=== PATIENT | female | born 1975 | race Two or more races ===

== ENCOUNTER 2020-02-06 01:49 | Emergency (ER) | payer MEDICAID ==
[~2020-02-06] VITALS: Ht 152.4 cm; Wt 81.8 kg
[2020-02-06] MEDS ORDERED: METOCLOPRAMIDE HCL 5 MG/ML 2 ML VIAL IVP ONE (02:45)
[2020-02-06 03:17] LABS: ANION GAP 7 mmol/L (8-16); CALCIUM, TOTAL 8.9 mg/dL (8.8-10.5); CARBON DIOXIDE 30 mmol/L (22-29); CHLORIDE 97 mmol/L (98-107); CREATININE 0.87 mg/dL (0.60-1.30); GLOMERULAR FILTR. RATE CALC > 60 mL/min (>60); GLUCOSE,RANDOM 148 mg/dL (70-110); HEMATOCRIT 42.3 % (36-46); HEMOGLOBIN 15.1 g/dL (12.0-16.0); MEAN CORPUSCULAR HEMOGLOBIN 33.3 pg (26.0-34.0); MEAN CORPUSCULAR HGB CONC 35.6 G/dL (31.0-37.0); MEAN CORPUSCULAR VOLUME 94 fL (80-100); PLATELET COUNT (AUTO) 187 K/uL (150-450); POTASSIUM 3.8 mmol/L (3.5-5.1); RED BLOOD CELL COUNT(AUTO) 4.52 MIL/uL (4.00-5.20); RED CELL DISTRIBUTION WIDTH 13.3 % (11.5-14.5); SODIUM SERUM 134 mmol/L (136-145); UREA NITROGEN, BLOOD 14 mg/dL (7-18)
[2020-02-06 03:31] LABS: ALANINE AMINOTRANSFERASE 130 U/L (12-78); ALBUMIN 4.2 g/dL (3.4-5.0); ALKALINE PHOSPHATASE 75 U/L (46-116); ASPARTATE AMINOTRANSFERASE 80 U/L (15-37); BILIRUBIN,TOTAL 0.7 mg/dL (0.1-1.0); FREE T4 (FREE THYROXINE) 1.18 ng/dL (0.76-1.46); THYROID STIMULATING HORMONE 1.59 uIU/mL (0.36-3.74); TOTAL PROTEIN, SERUM 8.6 g/dL (6.4-8.2)
[2020-02-06 03:48] LABS: BAND NEUTROPHILS % (MANUAL) 4 % (0-5); LYMPHOCYTES % (MANUAL) 17 % (22-44); MONOCYTES % (MANUAL) 4 % (2-9); SEGMENTED NEUTROPHILS % 75 % (40-70)
[2020-02-06] MEDS ORDERED: IBUPROFEN 400 MG TABLET PO ONE (04:00)
[2020-02-06 04:06] VITALS: BP 138/81
[2020-02-06 05:20] LABS: AMPHET/METH SCREEN,URINE NEGATIVE (NEGATIVE); BARBITURATE SCREEN, URINE NEGATIVE (NEGATIVE); BENZODIAZEPINES SCREEN,URINE NEGATIVE (NEGATIVE); CANNABINOID SCREEN,URINE NEGATIVE (NEGATIVE); COCAINE SCREEN,URINE NEGATIVE (NEGATIVE); METHADONE SCREEN, URINE NEGATIVE (NEGATIVE); OPIATE SCREEN,URINE NEGATIVE (NEGATIVE)
[2020-02-06 05:21] LABS: PHENCYCLIDINE SCREEN,URINE NEGATIVE (NEGATIVE)
== END 2020-02-06 04:09 | disposition home or self-care (01) ==
LOC: EMS 01:50
DX: R51 Headache (principal); R74.8 Abnormal levels of other serum enzymes; R11.2 Nausea with vomiting, unspecified
CPT/HCPCS: 36415; 70450; 80053; 80307; 81025; 84439; 84443; 85025; 96374; 99284; G0480; J2765